=== PATIENT | female | born 1945 | race Asian ===

== ENCOUNTER → 2017-02-24 14:46 | Outpatient (CLI) | payer MEDICARE, OTHER ==
[2013-03-01 09:41] VITALS: BMI 23.8
== END | disposition home or self-care (01) ==
LOC: D.MRI 14:46
DX: M54.5 Low back pain (principal)

== ENCOUNTER 2017-06-30 00:10 | Emergency (ER) | payer MEDICARE, OTHER ==
[2013-03-01 09:41] VITALS: BMI 23.8
== END 2017-06-30 03:53 | disposition home or self-care (01) ==
LOC: D.ER 00:10
DX: S91.201A Unspecified open wound of right great toe with damage to nail, initial encounter (principal); X58.XXXA Exposure to other specified factors, initial encounter; Y93.89 Activity, other specified; Y92.029 Unspecified place in mobile home as the place of occurrence of the external cause